=== PATIENT | female | born 1940 | race Hispanic/Latino ===

== ENCOUNTER 2017-10-27 13:04 | Outpatient (CLI) | payer MEDICARE ==
--- NOTE | 2017-10-27 18:03 | XRay Report ---
FINAL REPORT EXAM: XR KNEE BILAT 4+V HISTORY: KNEE PAIN bilaterally TECHNIQUE: AP, tunnel, sunrise, and lateral standing views of both knees PRIORS: None. FINDINGS: No acute fracture or dislocation is seen. The soft tissues are unremarkable with no evidence for suprapatellar joint effusion. Bony mineralization is normal. On the right, severe narrowing of the lateral joint compartment is seen with spurring off the tibial spines. Mild narrowing of the patellofemoral joint is present with spurring off the posterior patella. On the left, there is mild narrowing of the medial joint compartment with spurring off the tibial spines. IMPRESSION: No acute abnormality of the bilateral knees. Evidence for joint space narrowing in osteoarthritis in both knees involving the right lateral and patellofemoral, and left medial knee joints.
== END 2017-10-27 13:05 | disposition home or self-care (01) ==
LOC: SPVIMAG 13:04
PROVIDERS: ATTEND Orthopaedic Surgery
DX: M17.0 Bilateral primary osteoarthritis of knee (principal)